=== PATIENT | born 1950 | race Two or more races ===

== ENCOUNTER → 2023-12-11 10:30 | Outpatient (BNVA) | payer MEDICARE, BC, SELFPAY | PROVIDERS: Visit Provider Internal Medicine | DX: E11.9 Type 2 diabetes mellitus without complications (principal); E78.2 Mixed hyperlipidemia; Z79.84 Long term (current) use of oral hypoglycemic drugs; Z79.85 Long-term (current) use of injectable non-insulin antidiabetic drugs | CPT/HCPCS: 99214 ==

== ENCOUNTER 2024-04-09 08:37 | Outpatient (CLI) | payer MEDICARE, BC, SELFPAY ==
[2024-04-09 09:41] LABS: Alanine Aminotransferase 14 U/L (0-33); Albumin Level 4.6 g/dL (3.5-5.2); Alkaline Phosphatase 120 U/L (35-105); Anion Gap 17.8 (5-19); Aspartate Amino Transferase 14 U/L (0-32); Blood Urea Nitrogen 21 mg/dL (8-23); Calcium 10.4 mg/dL (8.5-10.5); Carbon Dioxide 26 mmol/L (22-29); Chloride 95 mmol/L (98-107); Chol HDL Ratio 2.74 mg/dL (0.0-4.40); Cholesterol 159 mg/dL (0-200); Globulin 3.2 g/dL (1.3-4.6); Glucose 144 mg/dL (65-115); HDL Cholesterol 58 mg/dL (60-100); LDL Cholesterol Calculated 70 mg/dL (50-129); LDL HDL Ratio 1.21 RATIO (0.00-3.22); Osmolality Calculated 286 mOsm/kg (285-295); Potassium 3.8 mmol/L (3.5-5.1); Sodium 135 mmol/L (136-145); Total Bilirubin 0.7 mg/dL (0.15-1.2); Total Protein 7.8 g/dL (6.6-8.7); Triglycerides 154 mg/dL (0-150)
[2024-04-09 09:48] LABS: Estmated Average Glucose 160; Hemoglobin A1C 7.2 % (4.0-6.0)
[2024-04-09 09:49] LABS: Creatinine Urine, Random 112 mg/dL (28-217); Microalbum Creatinine Ratio Ur 9 mg/dL (0-20); Microalbumin Random Urine 1 ug/dL (0-20)
== END 2024-04-09 08:38 | disposition home or self-care (01) ==
LOC: LAB 08:40
PROVIDERS: Visit Provider Internal Medicine
DX: E78.2 Mixed hyperlipidemia (principal); E11.9 Type 2 diabetes mellitus without complications
CPT/HCPCS: 36415; 80053; 80061; 82044; 83036

== ENCOUNTER → 2024-07-14 11:43 | Outpatient (BNVA) | payer MEDICARE, BC, SELFPAY | PROVIDERS: PCP Family Medicine; Visit Provider Internal Medicine | DX: E11.9 Type 2 diabetes mellitus without complications (principal); E78.2 Mixed hyperlipidemia | CPT/HCPCS: 99214 ==

== ENCOUNTER 2024-10-14 09:10 | Outpatient (CLI) | payer MEDICARE, BC, SELFPAY ==
[2024-10-14 10:21] LABS: Alanine Aminotransferase 15 U/L (0-33); Albumin Level 4.3 g/dL (3.5-5.2); Alkaline Phosphatase 114 U/L (35-105); Aspartate Amino Transferase 18 U/L (0-32); Blood Urea Nitrogen 20 mg/dL (8-23); Calcium 10.3 mg/dL (8.5-10.5); Carbon Dioxide 23 mmol/L (22-29); Chloride 102 mmol/L (98-107); Cholesterol 192 mg/dL (0-200); Glucose 169 mg/dL (65-115); HDL Cholesterol 60 mg/dL (60-100); LDL Cholesterol Calculated 91 mg/dL (50-129); LDL HDL Ratio 1.52 RATIO (0.00-3.22); Osmolality Calculated 291 mOsm/kg (285-295); Sodium 137 mmol/L (136-145); Total Protein 7.3 g/dL (6.6-8.7); Triglycerides 203 mg/dL (0-150)
[2024-10-14 10:23] LABS: Anion Gap 16.6 (5-19); Potassium 4.6 mmol/L (3.5-5.1)
[2024-10-14 10:25] LABS: Total Bilirubin 0.4 mg/dL (0.15-1.2)
[2024-10-14 10:26] LABS: Creatinine Urine, Random 100 mg/dL (28-217); Microalbum Creatinine Ratio Ur 40 mg/dL (0-20); Microalbumin Random Urine 4 ug/dL (0-20)
[2024-10-14 13:15] LABS: Estmated Average Glucose 177; Hemoglobin A1C 7.8 % (4.0-6.0)
== END 2024-10-14 09:11 | disposition home or self-care (01) ==
PROVIDERS: PCP Family Medicine; Visit Provider Internal Medicine
DX: E78.2 Mixed hyperlipidemia (principal); E11.9 Type 2 diabetes mellitus without complications
CPT/HCPCS: 36415; 80053; 80061; 82044; 83036

== ENCOUNTER → 2025-01-28 09:11 | Outpatient (BNVA) | payer MEDICARE, BC, SELFPAY | PROVIDERS: PCP Family Medicine; Visit Provider Internal Medicine | DX: E11.65 Type 2 diabetes mellitus with hyperglycemia (principal); E78.2 Mixed hyperlipidemia | CPT/HCPCS: 99214 ==